=== PATIENT | female | born 1955 | race Caucasian/White ===

== ENCOUNTER 2020-11-20 22:30 | Inpatient (IN) | payer OTHER ==
[~2020-11-20] VITALS: Ht 167.6 cm; Wt 62.0 kg
[~2020-11-20 22:30] MED LIST: HYDR2TAB29 PO; QUET25TA5 PO
[2020-11-20] MEDS ORDERED: ACETAMINOPHEN 500 MG TABLET ONE (23:26)
[2020-11-20] MEDS ORDERED: ACETAMINOPHEN 500 MG TABLET PO ONE (23:30)
[2020-11-21] MEDS ORDERED: ONDANSETRON 2MG/ML, 2ML IVPush ONE (00:30)
[2020-11-21] MEDS ORDERED: SODIUM CHLORIDE 0.9% 1,000ML IVBOLUS ONE (00:30)
[2020-11-21] MEDS ORDERED: MORPHINE SULFATE 4 MG/ML, 1ML IVPush PRN (00:30)
[2020-11-21] MEDS ORDERED: ONDANSETRON 2MG/ML, 2ML ONE ×3 (00:46→15:04)
[2020-11-21] MEDS ORDERED: MORPHINE SULFATE 4 MG/ML, 1ML ONE (00:46)
[2020-11-21 01:04] LABS: BASOPHILS % (AUTO) 1 % (0-1); EOSINOPHILS % (AUTO) 1 % (1-7); LYMPHOCYTES % (AUTO) 19 % (22-44); MD NO; MEAN CORPUSCULAR HEMOGLOBIN 32.5 pg (27.0-34.8); MEAN CORPUSCULAR HGB CONC 34.4 g/dL (32.4-35.8); MEAN PLATELET VOLUME 7.8 fL (7.4-10.4); MONOCYTES % (AUTO) 5 % (2-9); NEUTROPHILS % (AUTO) 75 % (42-75); PLATELET COUNT 239 x10^3/uL (130-400); RED BLOOD COUNT 4.68 x10^6/uL (3.82-5.3); RED CELL DISTRIBUTION WIDTH 12.4 % (9.6-15.2)
[2020-11-21 01:08] LABS: ALBUMIN 3.8 g/dL (3.4-5.0); ANION GAP 8 mmol/L (5-15); CALCIUM 8.9 mg/dL (8.5-10.1); CHLORIDE 108 mmol/L (98-107); CREATININE 0.59 mg/dL (0.55-1.02)
--- NOTE | 2020-11-21 01:29 | NUR ---
rapid test walked to lab
--- NOTE | 2020-11-21 01:37 | NUR ---
spoke to [facility]. spoke to sylvia. pt. is denied.
--- NOTE | 2020-11-21 01:43 | NUR ---
BREAK RN: REPORT GIVEN TO SCHUYLER MCKINNON
--- NOTE | 2020-11-21 01:56 | NUR ---
report to jose doyle
[2020-11-21] MEDS ORDERED: SODIUM CHLORIDE 0.9% 1,000 ML IV SCH (02:00)
[2020-11-21] MEDS ORDERED: morphine SULFATE 10 MG/ML, 1ML IVPush PRN (02:00)
[2020-11-21] MEDS ORDERED: ACETAMINOPHEN 325 MG TABLET PO PRN (02:00)
[2020-11-21] MEDS ORDERED: LABETALOL 5MG/ML, 20ML IVPush PRN (02:00)
[2020-11-21] MEDS ORDERED: QUETIAPINE 25MG TABLET PO ONE (02:00)
[2020-11-21] MEDS ORDERED: DOCUSATE 100 MG CAPSULE PO PRN (02:00)
[2020-11-21] MEDS ORDERED: ZOLP-413 PO (02:51)
[2020-11-21] MEDS ORDERED: SERT-237 PO (02:51)
[2020-11-21] MEDS ORDERED: METF10007 PO (02:51)
[2020-11-21] MEDS ORDERED: ROSU5TAB12 PO (02:51)
[2020-11-21 03:03] VITALS: BP 124/66
[2020-11-21] MEDS: HYDROcodone/APAP 5/325 TABLET PO PRN ×2 (03:24→09:35)
[2020-11-21] MEDS ORDERED: LISI10TA19 PO (04:28)
[2020-11-21] MEDS ORDERED: SUMA50TA4 PO (04:28)
[2020-11-21] MEDS ORDERED: LATA2.5D4 EACHEYE (04:28)
[2020-11-21] MEDS: HEPARIN 5,000 UNITS/ML, 1ML SQ SCH ×3 (05:40→23:29)
[2020-11-21 06:27] VITALS: BP 121/73
[2020-11-21] MEDS ORDERED: ONDANSETRON ODT 4 MG PO PRN (11:00)
[2020-11-21] MEDS: ONDANSETRON 2MG/ML, 2ML IVPush PRN (11:16)
[2020-11-21 12:59] VITALS: BP 121/69
[2020-11-21] MEDS ORDERED: FENTANYL PF 250 MCG/5ML ONE (14:15)
[2020-11-21] MEDS ORDERED: HALOPERIDOL 5 MG/ML IV PRN (14:30)
[2020-11-21] MEDS ORDERED: DIPHENHYDRAMINE 50 MG/ML, 1ML IVPush PRN (14:30)
[2020-11-21] MEDS ORDERED: PROMETHAZINE 25 MG/ML, 1ML IVPush PRN (14:30)
[2020-11-21] MEDS ORDERED: HYDROmorphone 1 MG/ML, 1ML INJ IVPush PRN (14:30)
[2020-11-21] MEDS ORDERED: LABETALOL 5MG/ML, 20ML IV PRN (14:30)
[2020-11-21] MEDS ORDERED: hydrALAzine 20 MG/ML, 1ML IV PRN (14:30)
[2020-11-21] MEDS ORDERED: OXYcodone 5 MG/5 ML ORAL.SOL UDC PO PRN (14:30)
[2020-11-21] MEDS ORDERED: MEPERIDINE/PF 25MG/0.5ML IVPush PRN (14:30)
[2020-11-21] MEDS ORDERED: PROPOFOL 10 MG/ML, 20ML ONE (15:04)
[2020-11-21] MEDS ORDERED: DEXAMETHASONE 4 MG/ML, 1ML ONE (15:04)
[2020-11-21] MEDS ORDERED: CEFAZOLIN 1,000 MG ONE (15:04)
[2020-11-21] MEDS: KETOROLAC 30 MG/1 ML IVPush SCH ×2 (15:30→23:34)
[2020-11-21] MEDS ORDERED: OXYcodone 5 MG/5 ML ORAL.SOL UDC ONE (15:39)
[2020-11-21] MEDS ORDERED: FENTANYL PF 100 MCG/2ML ONE (15:39)
[2020-11-21] MEDS: FENTANYL PF 100 MCG/2ML IV PRN ×2 (15:50→16:00)
[2020-11-21] MEDS ORDERED: ZOLPIDEM 5MG TABLET PO PRN (16:30)
[2020-11-21 19:07] VITALS: BP 128/71
[2020-11-21] MEDS ORDERED: LATANOPROST OPHTH 0.005%, 2.5ML EACHEYE SCH (21:00)
[2020-11-21] MEDS ORDERED: DEXTROSE 50%, 50ML SYRINGE IVPush PRN (22:30)
[2020-11-21] MEDS ORDERED: DEXTROSE 4 GM TAB.CHEW PO PRN (22:30)
[2020-11-21] MEDS ORDERED: GLUCAGON 1 MG IM PRN (22:30)
[2020-11-21] MEDS: INSULIN LISPRO 100 UNITS/ML, PEN SQ-INSULIN SCH (23:32)
[2020-11-21] MEDS: CEFAZOLIN PMX 1GM/50ML 50 ML IVPB SCH (23:37)
[2020-11-21] MEDS: SODIUM CHLORIDE FLUSH 10ML SYR IVF SCH (23:38)
[2020-11-22 00:20] VITALS: BP 92/58
[2020-11-22 00:39] VITALS: BP 102/57
[2020-11-22 04:13] VITALS: BP 100/59
[2020-11-22 05:40] LABS: BASOPHILS % (AUTO) 0 % (0-1); EOSINOPHILS % (AUTO) 0 % (1-7); LYMPHOCYTES % (AUTO) 14 % (22-44); MEAN CORPUSCULAR HEMOGLOBIN 32.3 pg (27.0-34.8); MEAN CORPUSCULAR HGB CONC 33.7 g/dL (32.4-35.8); MEAN PLATELET VOLUME 8.2 fL (7.4-10.4); MONOCYTES % (AUTO) 5 % (2-9); NEUTROPHILS % (AUTO) 81 % (42-75); PLATELET COUNT 225 x10^3/uL (130-400); RED BLOOD COUNT 4.35 x10^6/uL (3.82-5.3); RED CELL DISTRIBUTION WIDTH 12.4 % (9.6-15.2)
[2020-11-22 05:42] LABS: ANION GAP 6 mmol/L (5-15); CALCIUM 8.8 mg/dL (8.5-10.1); CHLORIDE 108 mmol/L (98-107); CREATININE 0.68 mg/dL (0.55-1.02)
[2020-11-22 05:47] LABS: MD NO
[2020-11-22] MEDS: INSULIN LISPRO 100 UNITS/ML, PEN SQ-INSULIN SCH ×2 (07:00→11:25)
[2020-11-22 07:30] VITALS: BP 117/68
[2020-11-22] MEDS: CEFAZOLIN PMX 1GM/50ML 50 ML IVPB SCH (08:08)
[2020-11-22] MEDS: HEPARIN 5,000 UNITS/ML, 1ML SQ SCH (08:09)
[2020-11-22] MEDS: KETOROLAC 30 MG/1 ML IVPush SCH (08:11)
[2020-11-22] MEDS: SODIUM CHLORIDE FLUSH 10ML SYR IVF SCH (08:12)
[2020-11-22] MEDS ORDERED: SERTRALINE 50MG TABLET PO SCH (09:00)
[2020-11-22] MEDS ORDERED: LISINOPRIL 10 MG TABLET PO SCH (09:00)
[2020-11-22] MEDS ORDERED: DAPA10TA PO (10:02)
[2020-11-22] MEDS ORDERED: ASPI-1026 PO (10:06)
[2020-11-22] MEDS ORDERED: HYDR-3248 PO (10:06)
[2020-11-22] MEDS ORDERED: DOCU100C33 PO (10:06)
[2020-11-22] MEDS: ONDANSETRON 2MG/ML, 2ML IVPush PRN (11:39)
[2020-11-22 13:45] VITALS: BP 138/75
== END 2020-11-22 14:20 | disposition home or self-care (01) | DRG 482 ==
LOC: ED 23:00 → EDIP 11-21 02:08 → 4NE 11-21 02:15
PROVIDERS: ADMIT Family Medicine; ATTEND Hospitalist
PROC: 0QS734Z Reposition Left Upper Femur with Internal Fixation Device, Percutaneous Approach (ICD-10-PCS; principal; 2020-11-21 19:45)
DX: S72.032A Displaced midcervical fracture of left femur, initial encounter for closed fracture (principal); E11.9 Type 2 diabetes mellitus without complications; F17.200 Nicotine dependence, unspecified, uncomplicated; F32.9 Major depressive disorder, single episode, unspecified; G43.909 Migraine, unspecified, not intractable, without status migrainosus; Z20.822 Contact with and (suspected) exposure to COVID-19; W01.0XXA Fall on same level from slipping, tripping and stumbling without subsequent striking against object, initial encounter; I10 Essential (primary) hypertension; Z72.89 Other problems related to lifestyle; Y93.89 Activity, other specified; Y92.89 Other specified places as the place of occurrence of the external cause; Y99.8 Other external cause status
CPT/HCPCS: 36415; 71045; 72170; 76000; 80048; 82040; 82962; 85025; 87635; 93005; 99285; C1713; G0378; J0690; J1100; J1644; J1885; J2405; J2704; J3010; J1815; J2270; J7030